=== PATIENT | male | born 1965 | race Caucasian/White ===

== ENCOUNTER 2023-06-16 17:00 | Outpatient (CLI) | payer BC | END 2023-06-16 17:01 | disposition home or self-care (01) | LOC: SLEEPLAB 17:00 | PROVIDERS: ATTEND Family Medicine | DX: G47.33 Obstructive sleep apnea (adult) (pediatric) (principal); G47.61 Periodic limb movement disorder; G25.81 Restless legs syndrome; I10 Essential (primary) hypertension; R53.83 Other fatigue; R09.89 Other specified symptoms and signs involving the circulatory and respiratory systems; E66.9 Obesity, unspecified; Z68.42 Body mass index [BMI] 45.0-49.9, adult | CPT/HCPCS: 95810 ==